=== PATIENT | female | born 1975 | race American Indian/Alaskan Native ===

== ENCOUNTER 2016-06-08 07:47 | Outpatient (CLI) | payer BC ==
--- NOTE | 2016-06-08 09:37 | Mammography Report ---
Bilateral mammogram: No previous studies are available. CAD study utilized. Findings: There is cluster of calcification noted upper posterior right breast. No mass. Predominance adipose tissue bilaterally. Focal asymmetric density lower left axilla. Impression: Cluster of calcifications right breast. Asymmetric density left breast. Comparison with previous studies recommended. If previous studies are not available spot compression magnification of calcifications right breast and spot compression magnification and sonographic examination of asymmetric density left breast is advised. BI-RADS CATEGORY: 0 = Needs additional imaging evaluation ACR BI-RADS MAMMOGRAPHIC CODES: 0 = Needs additional imaging evaluation; 1 = Negative; 2 = Benign; 3 = Probably benign; 4 = Suspicious; 5 = Malignant; 6 = Known biopsy-proven malignancy COMMENT: 1. Dense breast tissue, i.e., adenosis, fibrocystic changes, etc., may obscure an underlying neoplasm. 2. Approximately 10% of cancers are not detected with mammography. 3. A negative mammography report should not delay biopsy if a clinically suspicious mass is present. COMMENT: Patient follow-up letters are generated in [employer]. Rectum and Spot compression magnification of cluster of calcifications right breast.
== END 2016-06-08 07:48 | disposition home or self-care (01) ==
LOC: MAMMO 07:47
PROVIDERS: ATTEND Obstetrics & Gynecology
DX: Z12.31 Encounter for screening mammogram for malignant neoplasm of breast (principal)
CPT/HCPCS: 77067; G0202

== ENCOUNTER 2016-06-25 09:18 | Outpatient (CLI) | payer BC ==
--- NOTE | 2016-06-25 10:46 | Ultrasound Report ---
BILATERAL DIGITAL DIAGNOSTIC MAMMOGRAM and RIGHT BREAST ULTRASOUND: 06/25/16 09:18:00 CLINICAL: Recalled for right upper posterior calcifications and a left asymmetry. COMPARISON:06/08/16 screening FINDINGS: ML and spot magnification LM and CC views were performed and demonstrate a group of pleomorphic calcifications in the outer right breast approximately 5 cm from the nipple. There is suggestion of a 1 cm irregular mass associated with the calcifications on the lateral spot mag. Satisfactory effacement of the previously described left asymmetry. Ultrasound of the right breast (including all four quadrants, the retroareolar area and the axilla) was performed. A solid irregular hypoechoic mass at 9 o'clock 3 cm from the nipple measures approximately 1 cm and correlates with the mammographic mass with adjacent calcifications. The calcifications are not definitively identified by ultrasound. No suspicious right axillary lymph nodes identified. IMPRESSION: A suspicious 1 cm right breast mass at 9 o'clock 3 cm from the nipple and suspicious adjacent calcifications. Negative left breast. BI-RADS CATEGORY: 4--Suspicious RECOMMENDATION: Ultrasound guided needle core biopsy of the right breast mass. The calcifications and mammographic mass should be reassessed for concordance on a post ultrasound biopsy mammogram. I discussed the findings and the recommendation for needle core biopsy with the patient at the time of the examination. ACR BI-RADS MAMMOGRAPHIC CODES: 0 = Needs additional imaging evaluation; 1 = Negative; 2 = Benign; 3 = Probably benign; 4 = Suspicious; 5 = Malignant; 6 = Known biopsy-proven malignancy COMMENT: 1. Dense breast tissue, i.e., adenosis, fibrocystic changes, etc., may obscure an underlying neoplasm. 2. Approximately 10% of cancers are not detected with mammography. 3. A negative mammography report should not delay biopsy if a clinically suspicious mass is present. COMMENT: Patient follow-up letters are generated via our [employer] application.
== END 2016-06-25 09:19 | disposition home or self-care (01) ==
LOC: MAMMO 09:18
PROVIDERS: ATTEND Obstetrics & Gynecology
DX: N63 Unspecified lump in breast (principal); R92.1 Mammographic calcification found on diagnostic imaging of breast
CPT/HCPCS: 76641; G0204; 77066

== ENCOUNTER 2017-11-03 06:27 | Day surgery (SDC) | payer BC, OTHER ==
[2017-11-03] MEDS ORDERED: XYLOCAINE 1% 20 mL ONE ×2 (07:37→07:44)
[2017-11-03] MEDS ORDERED: MARCAINE 0.25% INFILTRATI ONE ×2 (07:37→10:17)
[2017-11-03] MEDS ORDERED: VANCOMYCIN/NS 1 GM/250 ML 1 GM/250 ML BAG IV SCH (07:45)
[2017-11-03] MEDS ORDERED: SUBLIMAZE IV PRN (08:02)
[2017-11-03] MEDS ORDERED: XYLOCAINE 1% 20 mL INFILTRATI NR (08:21)
--- NOTE | 2017-11-03 08:35 | Anesthesia Day of Surgery ---
Anesthesia Day of Surgery - Day of Surgery Patient Examined: Yes Patient H&P Reviewed: Yes Patient is NPO: Yes
--- NOTE | 2017-11-03 08:36 | Anesthesia Consultation ---
Anesthesia Consult and Med Hx Date of service: 11/03/17 - Airway Anesthetic Teeth Evaluation: Good ROM Head & Neck: Adequate Mental/Hyoid Distance: Adequate Mallampati Class: Class I Intubation Access Assessment: Good - Pulmonary Exam CTA: Yes - Cardiac Exam Cardiac Exam: RRR - Pre-Operative Health Status ASA Pre-Surgery Classification: ASA1 Proposed Anesthetic Plan: General - Pulmonary Hx Smoking: No Hx Respiratory Symptoms: No - Cardiovascular System Hx Hypertension: No Hx Heart Attack/AMI: No - Central Nervous System Hx Seizures: No CVA: No - Gastrointestinal Hx Gastroesophageal Reflux Disease: No - Endocrine Hx Renal Disease: No Hx Liver Disease: No Hx Insulin Dependent Diabetes: No Hx Non-Insulin Dependent Diabetes: No Hx Thyroid Disease: No - Other Systems Hx Cancer: No (abnormal mamagram) Hx Obesity: No - Additional Comments Anesthesia Medical History Comments: No prior anesthetics. No FHx anesthetic complications.
[2017-11-03] MEDS ORDERED: DILAUDID ONE (08:37)
[2017-11-03] MEDS ORDERED: DIPRIVAN 10 MG/ML IV ONE (08:37)
[2017-11-03] MEDS ORDERED: XYLOCAINE MPF 2% ONE (08:37)
[2017-11-03] MEDS ORDERED: VERSED IV NR (09:00)
[2017-11-03] MEDS ORDERED: LACTATED RINGERS 1,000 ML IV SCH ×2 (09:00→11:00)
--- NOTE | 2017-11-03 09:47 | Short Stay Summary ---
Short Stay Documentation Date of service: 11/03/17 - History H&P: obtained from office - Allergies and Medications Current Medications: Allergies Penicillins Allergy (Verified 10/29/17 10:47) Hives Home Medications Medication Instructions Recorded Confirmed Last Taken Type HYDROcodone/APAP 5-325 [[place] 1 each PO Q6HR PRN #30 tablet 11/03/17 Unknown Rx 5/325] Active Medications Fentanyl (Sublimaze) 50 mcg IV Q15MIN PRN PRN Reason: Pain , Severe (7-10) Stop: 11/03/17 13:00 Lactated Ringer's (Lactated Ringers) 1,000 mls @ 100 mls/hr IV DIRECT KATHLEEN Lactated Ringer's (Lactated Ringers) 1,000 mls @ 100 mls/hr IV DIRECT KATHLEEN Stop: 11/03/17 10:59 Last Admin: 11/03/17 08:37 Dose: 100 mls/hr Vancomycin HCl (Vancomycin/Ns 1 Gm/250 Ml) 1 gm in 250 mls @ 167.007 mls/hr IV PREOP KATHLEEN; Protocol Stop: 11/03/17 14:00 Last Admin: 11/03/17 09:12 Dose: 167.007 mls/hr Lidocaine (Xylocaine 1% 20 Ml) 20 ml INFILTRATI ONCE NR Stop: 11/03/17 15:00 Midazolam HCl (Versed) 2 mg IV PREOP NR Stop: 11/03/17 23:59 Last Admin: 11/03/17 08:40 Dose: 2 mg - Brief post op/procedure progress note Date of procedure: 11/03/17 Pre-op diagnosis: Suspicous right breast microcalcifications Post-op diagnosis: same Procedure: Right needle localization excisional biopsy Anesthesia: GETA Findings: Radiograph specimen with wire and calcifications present Surgeon: YESENIA MCFARLAND Estimated blood loss: minimal Pathology: list Specimen disposition: to lab Condition: stable - Disposition Condition at discharge: Good Disposition: DC-[id number] TO HOME OR SELFCARE Short Stay Discharge Plan Activity: other (no heavy lifting) Diet: regular Wound: other (keep incision clean and dry; may shower in 24 hours; no baths, pools or lakes; do not rub or scrub incision; wear breast binder) Follow up with: MARYANN SALMON MD [Primary Care Provider] - 7 Days YESENIA MCFARLAND MD [Staff Physician] - 7 Days Prescriptions: HYDROcodone/APAP 5-325 [[place] 5/325] 1 each PO Q6HR PRN #30 tablet PRN Reason: Pain
--- NOTE | 2017-11-03 09:56 | Operative Report ---
Operative Report Operative Report: Date of Service: November 03, 2017 Preoperative diagnosis: Suspicous right breast microcalifications of the upper outer quadrant Postoperative diagnosis: Same Procedure: Right needle localization excisional biopsy Surgeon: Martha Rutledge MD Anesthesia: General Findings: Right wire and microcalcifications present within radiograph specimen Complications: None EBL: Minimal Disposition: PACU in good condition Procedure in detail: This is a 42-year-old lady with suspious right breast microcalcifications of the upper outer quadrant. Calcifications not amenable to stereotactic biopsy given breast size and excisional biopsy recommended to rule out malignancy. Patient wished to proceed with the above procedure. Procedure in detail: The patient was taken to radiology for wire placement for localization of area of concern. Patient was then taken to the operating room. Gen. anesthesia was administered. The right breast was prepped and draped in the normal sterile operative fashion. The wire was identified. Timeout was performed. Lateral breast incision was made with a 15 blade knife and dissection taken down to subcutaneous tissues. First began raising of the lateral flap with removal of the wire from the skin, followed by raising of the medial flap, superior flap and inferior flap. The breast area of concern was appropriately removed posteriorly immediately anterior to the pectoralis muscle with the aid of the bovie cautery. The wire was not encountered. Specimen was marked and then sent to pathology and radiology; radiograph specimen with wire and calcifications present, calcifications very faint and radiograph reviewed by Dr. Ray with confirmation. Breast cavity was irrigated and hemostasis was obtained. The breast cavity was anesthetized with 1% lidocaine mixed with quarter percent Marcaine. The subcutaneous tissues were approximated and closed using interrupted 3-0 Vicryl followed by a running 4-0 Monocryl and skin affix. The patient tolerated surgery very well and she was awake from anesthesia without any complication and transported to PACU in good condition.
[2017-11-03] MEDS ORDERED: ZOFRAN ONE (09:59)
[2017-11-03] MEDS ORDERED: DECADRON ONE (09:59)
[2017-11-03] MEDS ORDERED: NEO SYNEPHRINE/NS Syringe(OR USE) IV ONE (09:59)
[2017-11-03] MEDS ORDERED: NACL 0.9% IR ONE (10:17)
[2017-11-03] MEDS ORDERED: XYLOCAINE 1% 20 mL INFILTRATI ONE (10:17)
--- NOTE | 2017-11-03 12:57 | Mammography Report ---
NEEDLE LOCALIZATION AND HOOKWIRE PLACEMENT RIGHT BREAST:11/03/17 CLINICAL: Right breast calcifications. COMPARISON: 10/08/17 FINDINGS: Using mammographic guidance, 1% lidocaine local anesthesia and sterile technique, a 3.0-cm Spence needle with a hookwire was placed from a lateral approach to localize a group of calcifications. The hookwire was deployed and the needle was removed. Satisfactory placement was confirmed on two orthogonal views. The patient tolerated the procedure well and there were no apparent complications. IMPRESSION: Uncomplicated hookwire placement right breast.
--- NOTE | 2017-11-03 12:59 | Mammography Report ---
SPECIMEN RADIOGRAPH RIGHT BREAST (2 VIEWS): 11/03/17 06:27:00 CLINICAL: Surgical excision of calcifications. FINDINGS: The targeted calcifications and a hookwire are identified within the specimen. 2 separate groups of calcifications were identified on one of the views. IMPRESSION: Excision of the targeted calcifications.
[2017-11-03 13:28] VITALS: BP 131/80
--- NOTE | 2017-11-03 14:59 | Post Anesthesia Evaluation ---
- Post Anesthesia Evaluation Patient Participated: Yes Airway Patent: Yes Stable Respiratory Function: Yes Nausea/Vomiting: No Temp > 96.8F: Yes Pain Manageable: Yes Adequeate Hydration: Yes Anesthesia Complications: No Block Receding Appropriately: Not Applicable
== END 2017-11-03 14:16 | disposition home or self-care (01) ==
LOC: OR 06:27
PROVIDERS: ATTEND Surgery
DX: N60.11 Diffuse cystic mastopathy of right breast (principal); N60.91 Unspecified benign mammary dysplasia of right breast; R92.0 Mammographic microcalcification found on diagnostic imaging of breast; Z88.0 Allergy status to penicillin; Z79.899 Other long term (current) drug therapy; Z98.890 Other specified postprocedural states; Z90.11 Acquired absence of right breast and nipple
CPT/HCPCS: 19125; 19281; 76098; 88307; J1100; J1170; J2250; J2370; J2405; J2704; J3370; J7120